=== PATIENT | male | born 1975 | race American Indian/Alaskan Native ===

== ENCOUNTER 2019-10-07 14:51 | Emergency (ER) | payer SELFPAY ==
[2019-10-07 15:07] VITALS: BP 126/83
--- NOTE | 2019-10-07 15:08 | Event Note ---
ED Screening Note Date of service: 10/07/19 Time: 15:04 ED Screening Note: 44 y o male recently out of [facility] 2 days ago with MH disorder. agitated This initial assessment/diagnostic orders/clinical plan/treatment(s) is/are subject to change based on patients health status, clinical progression and re- assessment by fellow clinical providers in the ED. Further treatment and workup at subsequent clinical providers discretion. Patient/guardian urged not to elope from the ED as their condition may be serious if not clinically assessed and managed. Initial orders include: labs, MH eval main side eval
[2019-10-07 15:28] LABS: Hematocrit 39.2 % (35.5-45.6); Hemoglobin 13.2 gm/dl (11.8-15.2); Mean Corpuscular HGB Conc 34 % (32-34); Mean Corpuscular Volume 82 fl (84-94); Platelet Count 320 K/mm3 (140-440); Red Cell Distribution Width 14.7 % (13.2-15.2)
[2019-10-07 15:40] LABS: BUN/Creatinine Ratio 11; Blood Urea Nitrogen 8 mg/dL (9-20); Calcium 9.4 mg/dL (8.4-10.2); Hemolysis Index 9
--- NOTE | 2019-10-07 16:20 | Emergency Department Report ---
ED General Adult HPI - General Chief complaint: Psych Stated complaint: DEEDEE EVAL Time Seen by Provider: 10/07/19 15:32 Source: patient, family Mode of arrival: Ambulatory Limitations: No Limitations - History of Present Illness Initial comments: Patient presents to the emergency department for a medication refill. He should states she has a history of schizophrenia, paranoid type, and was discharged from jail 2 days ago without antipsychotic medications. Patient states while in jail he was taking Haldol. Patient states that all he has his Cogentin and Benadryl. Patient denies homicidal or suicidal ideations. Patient denies auditory or visual hallucinations. -: unknown Severity scale (0 -10): 0 Improves with: none Worsens with: none Associated Symptoms: denies other symptoms Treatments Prior to Arrival: none - Related Data Previous Rx's Medication Instructions Recorded Last Taken Type Benztropine [Cogentin] 1 mg PO DAILY #10 tab 10/07/19 Unknown Rx Haloperidol [Haldol] 5 mg PO QHS #10 tablet 10/07/19 Unknown Rx ED Review of Systems ROS: Stated complaint: MH EVAL Other details as noted in HPI Comment: All other systems reviewed and negative Constitutional: denies: chills, fever Eyes: denies: eye pain, eye discharge, vision change ENT: denies: ear pain, throat pain Respiratory: denies: cough, shortness of breath, wheezing Cardiovascular: denies: chest pain, palpitations Endocrine: no symptoms reported Gastrointestinal: denies: abdominal pain, nausea, diarrhea Genitourinary: denies: urgency, dysuria Musculoskeletal: denies: back pain, joint swelling, arthralgia Skin: denies: rash, lesions Neurological: denies: headache, weakness, paresthesias Psychiatric: denies: anxiety, depression Hematological/Lymphatic: denies: easy bleeding, easy bruising ED Past Medical Hx - Past Medical History Hx Psychiatric Treatment: Yes (schizophrenia) - Social History Smoking Status: Current Every Day Smoker Substance Use Type: None - Medications Home Medications: Home Medications Medication Instructions Recorded Confirmed Last Taken Type Benztropine [Cogentin] 1 mg PO DAILY #10 tab 10/07/19 Unknown Rx Haloperidol [Haldol] 5 mg PO QHS #10 tablet 10/07/19 Unknown Rx ED Physical Exam - General Limitations: No Limitations General appearance: alert, in no apparent distress - Head Head exam: Present: atraumatic, normocephalic - Eye Eye exam: Present: normal appearance, PERRL, EOMI - ENT ENT exam: Present: mucous membranes moist - Neck Neck exam: Present: normal inspection - Respiratory Respiratory exam: Present: normal lung sounds bilaterally. Absent: respiratory distress - Cardiovascular Cardiovascular Exam: Present: regular rate, normal rhythm. Absent: systolic murmur, diastolic murmur, rubs, gallop - GI/Abdominal GI/Abdominal exam: Present: soft, normal bowel sounds. Absent: distended, tenderness - Rectal Rectal exam: Present: deferred - Extremities Exam Extremities exam: Present: normal inspection - Back Exam Back exam: Present: normal inspection - Neurological Exam Neurological exam: Present: alert, oriented X3, CN II-XII intact. Absent: motor sensory deficit - Psychiatric Psychiatric exam: Present: normal affect, normal mood. Absent: homicidal ideation, suicidal ideation - Skin Skin exam: Present: warm, dry, intact, normal color. Absent: rash ED Course Vital Signs 10/07/19 10/07/19 15:05 15:43 Temperature 97.9 F Pulse Rate 87 Respiratory 18 17 Rate Blood Pressure 126/83 O2 Sat by Pulse 99 Oximetry ED Medical Decision Making - Lab Data Result diagrams: 10/07/19 15:12 10/07/19 15:12 Lab Results 10/07/19 10/07/19 10/07/19 Range/Units 15:12 15:12 15:12 WBC (4.5-11.0) K/mm3 RBC (3.65-5.03) M/mm3 Hgb (11.8-15.2) gm/dl Hct (35.5-45.6) % MCV (84-94) fl MCH (28-32) pg MCHC (32-34) % RDW (13.2-15.2) % Plt Count (140-440) K/mm3 Sodium 127 L (137-145) mmol/L Potassium 4.9 (3.6-5.0) mmol/L Chloride 93.0 L (98-107) mmol/L Carbon Dioxide 22 (22-30) mmol/L Anion Gap 17 mmol/L BUN 8 L (9-20) mg/dL Creatinine 0.7 L (0.8-1.5) mg/dL Estimated GFR > 60 ml/min BUN/Creatinine Ratio 11 % Glucose 87 (75-100) mg/dL Calcium 9.4 (8.4-10.2) mg/dL Salicylates < 0.3 L (2.8-20.0) mg/dL Acetaminophen < 5.0 L (10.0-30.0) ug/mL Plasma/Serum Alcohol (0-0.07) % 10/07/19 10/07/19 Range/Units 15:12 15:12 WBC 8.1 (4.5-11.0) K/mm3 RBC 4.80 (3.65-5.03) M/mm3 Hgb 13.2 (11.8-15.2) gm/dl Hct 39.2 (35.5-45.6) % MCV 82 L (84-94) fl MCH 28 (28-32) pg MCHC 34 (32-34) % RDW 14.7 (13.2-15.2) % Plt Count 320 (140-440) K/mm3 Sodium (137-145) mmol/L Potassium (3.6-5.0) mmol/L Chloride (98-107) mmol/L Carbon Dioxide (22-30) mmol/L Anion Gap mmol/L BUN (9-20) mg/dL Creatinine (0.8-1.5) mg/dL Estimated GFR ml/min BUN/Creatinine Ratio % Glucose (75-100) mg/dL Calcium (8.4-10.2) mg/dL Salicylates (2.8-20.0) mg/dL Acetaminophen (10.0-30.0) ug/mL Plasma/Serum Alcohol < 0.01 (0-0.07) % - Medical Decision Making Discussed the patient with Dr. Ferrari The patient can be started on haldol and continue the cogentin The patient is not psychotic, homicidal, suicidal he does not qualify for involuntary hold Patient states he does not want to Haldol consuming some constipated A since cousin states she will try to get him to take medications The patient should follow up at the [facility] Critical care attestation.: If time is entered above; I have spent that time in minutes in the direct care of this critically ill patient, excluding procedure time. ED Disposition Clinical Impression: Schizophrenia Disposition: DC-01 TO HOME OR SELFCARE Is pt being admited?: No Does the pt Need Aspirin: No Condition: Stable Instructions: Schizophrenia (ED) Additional Instructions: return if worse Prescriptions: Haloperidol [Haldol] 5 mg PO QHS #10 tablet Benztropine [Cogentin] 1 mg PO DAILY #10 tab [facility] - [facility]-5 [facility] Time of Disposition: 16:16
[2019-10-07 17:29] LABS: Amphetamine Screen,Urine PRESUMPTIVE NEGATIVE; Benzodiazepines Screen,Urine PRESUMPTIVE NEGATIVE; Cannabinoid Screen,Urine PRESUMPTIVE NEGATIVE; Cocaine Screen,Urine PRESUMPTIVE NEGATIVE; Methadone Screen,Urine PRESUMPTIVE NEGATIVE; Opiate Screen,Urine PRESUMPTIVE NEGATIVE
[2019-10-07 17:37] LABS: Bilirubin,Urine NEG (Negative); Blood,Urine NEG (Negative); Color,Urine Straw (Yellow); Protein,Urine <15 mg/dL mg/dL (Negative); Urobilinogen,Urine < 2.0 mg/dL (<2.0); WBC,Urine < 1.0 /HPF (0.0-6.0)
[2019-10-07 21:40] LABS: Basophils % (Manual) 0 % (0.0-1.8); Large Platelets 1+; Platelet Estimate Consistent w Auto; RBC Morphology Normal; Total Cells Counted 100
== END 2019-10-07 18:14 | disposition home or self-care (01) ==
LOC: ED 14:51 → EEVIPCON 14:51 → ED 18:14
DX: F20.9 Schizophrenia, unspecified (principal); F17.200 Nicotine dependence, unspecified, uncomplicated
CPT/HCPCS: 36415; 80048; 80307; 80320; 81001; 85007; 85025; G0480

== ENCOUNTER 2019-10-08 20:09 | Emergency (ER) | payer SELFPAY ==
[2019-10-08 20:31] VITALS: BP 90/66
--- NOTE | 2019-10-08 20:37 | Emergency Department Report ---
Chief Complaint: Psych Stated Complaint: MH EVAL Time Seen by Provider: 10/08/19 20:31 - HPI History of Present Illness: 44 y/o male comes in for paper that he can take to get his check. Patient was seen here yesterday and discharge home with a referral to [facility]. Patient denies any Si/HI. - Exam Vital Signs: Vital Signs 10/08/19 20:29 Temperature 98.9 F Pulse Rate 89 Respiratory 20 Rate Blood Pressure 90/66 O2 Sat by Pulse 98 Oximetry MSE screening note: Focused history and physical exam performed. Due to findings the following was ordered: 44 y/o male comes in for paper that he can take to get his check. Patient was seen here yesterday and discharge home with a referral to [facility]. Patient denies any Si/HI. Referral to [facility]. ED Disposition for [facility] Disposition: MED SCREENING EXAM-LEFT Condition: Stable
== END 2019-10-08 20:40 | disposition left against medical advice (07) ==
LOC: ED 20:09
DX: Z00.00 Encounter for general adult medical examination without abnormal findings (principal)
CPT/HCPCS: 99281

== ENCOUNTER 2019-10-08 23:49 | Emergency (ER) | payer SELFPAY ==
[2019-10-09 00:18] VITALS: BP 100/60
== END 2019-10-09 02:15 | disposition left against medical advice (07) ==
LOC: ED 23:49
DX: Z00.00 Encounter for general adult medical examination without abnormal findings (principal); Z53.21 Procedure and treatment not carried out due to patient leaving prior to being seen by health care provider